=== PATIENT | female | born 1965 | race Caucasian/White ===

== ENCOUNTER → 2023-09-08 17:47 | Outpatient (REF) | payer BC, SELFPAY | LOC: WDC 17:47 | PROVIDERS: ATTENDING PHYSICIAN Obstetrics & Gynecology Gynecology; FAMILY PHYSICIAN Family Medicine | DX: Z12.31 Encounter for screening mammogram for malignant neoplasm of breast (principal); Z85.3 Personal history of malignant neoplasm of breast | CPT/HCPCS: 77063; 77067 ==

== ENCOUNTER → 2023-12-09 07:18 | Outpatient (REF) | payer BC, SELFPAY | LOC: RAD 07:18 | PROVIDERS: ATTENDING PHYSICIAN Family Medicine; FAMILY PHYSICIAN Family Medicine | DX: R10.11 Right upper quadrant pain (principal) | CPT/HCPCS: 76700 ==

== ENCOUNTER → 2024-01-19 09:26 | Outpatient (REF) | payer BC, SELFPAY | LOC: RAD 09:26 | PROVIDERS: ATTENDING PHYSICIAN Family Medicine | DX: R09.89 Other specified symptoms and signs involving the circulatory and respiratory systems (principal); R91.8 Other nonspecific abnormal finding of lung field | CPT/HCPCS: 71046 ==

== ENCOUNTER → 2024-01-23 10:28 | Outpatient (REF) | payer BC, SELFPAY | LOC: RAD 10:28 | PROVIDERS: ATTENDING PHYSICIAN Family Medicine; FAMILY PHYSICIAN Family Medicine | DX: R91.1 Solitary pulmonary nodule (principal) | CPT/HCPCS: 71250 ==

== ENCOUNTER 2024-01-24 14:37 | Inpatient (IN) | payer BC, SELFPAY ==
[2024-01-24 10:34] VITALS: BP 151/99
--- NOTE | 2024-01-24 11:56 | ED.GENMED ---
History of Present Illness
General
Chief Complaint: Breathing Problem
Source: patient
Exam Limitations: none
Time Seen by Provider: 01/24/24 11:37
Travel History
Have you had any contact with someone who has COVID-19?: No
Do you have any symptoms of coronavirus? Fever > 100 degrees, chills, cough, shortness of breath, sore throat, loss of taste or smell, muscle aches, or headache?: No
History of Present Illness
History of Present Illness:
58-year-old female presents with worsening cough shortness of breath work of breathing. She acutely got worse about 6 days ago. He was thought to have possible pneumonia and was prescribed Zithromax which she finished yesterday. Symptoms are
worsening. She was sick for a total of 2 weeks. She notes a productive cough occasionally small amount of blood. She also notes significant recent travel history between [facility] and [place]. She denies any leg swelling or calf pain. She
notes sweats and chills. She is fairly healthy otherwise. She is not a smoker.
Phy Exam
Physical Exam
Physical Exam:
General: Uncomfortable appearing female with increased work of breathing
HEENT: Normocephalic atraumatic neck is supple
Heart: Regular rate and rhythm no murmurs
Lungs: Crackles at the bases bilaterally
Extremities: No cyanosis or edema
Skin: Warm no rash
Scores
Heart Failure Risk
Heart Failure Risk Score: Not Applicable
Course
Orders/Labs/Results
Orders:
Orders
01/24/24 11:56
Comprehensive Metabolic Panel Urgent
D-Dimer Urgent
01/24/24 11:57
Complete Blood Count/With Diff Urgent
[facility] Progressive Urgent
NT-proBNP Urgent
01/24/24 13:21
0.9% Sodium Chloride 1000 ml [Nss] 1,000 ml IV BOLUS
Ipratropium/Albuterol Sulfate [Duoneb] 3 ml INH R NOW STA
Piperacillin/Tazo 3.375 Gram [Zosyn] 3.375 gram in 50 ml IV NOW
01/24/24 13:30
Blood Culture Q30M
FUAD Source: Blood/Venous
Specimen Description:
01/24/24 14:00
Blood Culture Q30M
FUAD Source: Blood/Venous
Specimen Description:
VANCOMYCIN Pharmacy to Dose [VANCOCIN Pharmacy to Dose] 1 each Pharmacy To Prepare [Call Pharmacy To Prepare] 0 ml IV PER PROTOCOL
Abnormal Lab Results
01/24/24 01/24/24
11:56 11:57
Hct 35.2 L %
(37.0-47.0)
MCV 80.5 L fL
(81.0-99.0)
Absolute Neuts (auto) 7.8 H 10^3/uL
(1.4-6.5)
Absolute Monos (auto) 0.7 H 10^3/uL
(0.1-0.6)
Lymphocytes % 18.6 L %
(20.5-51.1)
Carbon Dioxide 20 L mmol/L
(22-30)
Creatinine 0.5 L mg/dL
(0.6-1.0)
Glucose 101 H mg/dl
(70-99)
01/24/24 11:57
01/24/24 11:56
Vital Signs
Initial and Last Documented VS:
Initial Vital Signs
Temp Pulse Resp BP Pulse Ox
98.3 F 83 20 151/99 96
01/24/24 10:34 01/24/24 10:34 01/24/24 10:34 01/24/24 10:34 01/24/24 10:34
Last Documented Vital Signs
Temp Pulse Resp BP Pulse Ox
98.3 F 83 20 141/90 98
01/24/24 10:34 01/24/24 10:34 01/24/24 10:34 01/24/24 13:00 01/24/24 13:00
MDM/Problems Addressed
Differential Diagnosis Includes:
Persistent cough and shortness of breath despite recent treatment possible bronchitis with Zithromax and inhaler. She had outpatient chest x-ray about 5 days ago which was negative but there was a pulmonary nodule this was followed by CT scan which
was done as an outpatient yesterday. She has yet to hear the results of CT scan. This was done without contrast however. Recent extended travel. Consider potential for PE. Symptoms lasting over 2 weeks do not suspect flu. I have personally
visualized CT scan that was done as an outpatient yesterday which is pending official radiology report. Is possible pneumonia at the right base and small areas of infiltrate on the left side as well. D-dimer pending today. Will check labs.
*Critical Care Note
Total Time (30-74mins, 75-104mins- exclusive of procedures): Not Applicable
Update Note
Update Note:
Patient had 2 negative COVID test recently. I reviewed outpatient CT scan performed yesterday which demonstrates right and likely left basilar pneumonia. Patient now on 2 L of oxygen secondary to ongoing tachypnea. Will start vancomycin and
Zosyn. Fluids blood culture ordered. DuoNeb ordered admitted to hospitalist
ED Attending Note
-
Portions of this chart may have been created with voice recognition software.� Occasional wrong word or��sound alike� substitutions may have occurred due to the inherent limitations of voice recognition software.
Discharge Plan
Departure
Patient Disposition: Admit
Date of Disposition: 01/24/24
Time of Disposition: 13:27
Admit to: Telemetry
Presentation/result/management discussed w/ accepting MD/DO: Hospitalist
Discharge Problem:
Acute pneumonia
Prescriptions:
No Action
multivitamin 1 EACH tablet
1 ea PO DAILY
cyclosporine [Restasis] 10 DROPS dropperette
1 drp LEFT EYE BID
sumatriptan succinate [Imitrex] 100 MG tablet
100 mg PO PRN (Reason: headache)
ibuprofen 200 MG capsule
200 - 400 mg PO PRN (Reason: pain)
acetaminophen [Tylenol Extra Strength] 500 MG tablet
1 - 2 mg PO PRN PRN (Reason: pain)
Pataday
1 drp BOTH EYES PRN (Reason: dry eyes)
fluticasone propionate 1 SPRAY spray,suspension
1 spray intranasal PRN (Reason: congestion)
Referrals:
Naa Padilla MD [Family Provider] -
Interventions
Interventions:
ED- Cardiac Assessment Last Done: 01/24/24 12:05
ED- Pulmonary Assessment Last Done: 01/24/24 12:05
Discharge Date and Time
Print Language: CHINESE
[2024-01-24 11:58] VITALS: BP 143/83
[2024-01-24 12:12] LABS: % Basophils 0.3 % (0-2); % Eosinophils 1.4 % (0-6); % Immature Granulocytes 0.4 % (0-0.5); % Lymphocytes 18.6 % (20.5-51.1); % Monocytes 6.7 % (1.7-9.3); % Neutrophils 72.6 % (42.2-75.2); Absolute Eosinophils 0.2 10^3/uL (0-0.7); Absolute Monocytes 0.7 10^3/uL (0.1-0.6); Absolute Neutrophils 7.8 10^3/uL (1.4-6.5); Hematocrit 35.2 % (37.0-47.0); Hemoglobin 12.6 g/dL (12.0-16.0); Mean Corp Hgb Conc. 35.8 g/dL (33.0-37.0); Mean Corpuscular Hgb 28.8 pg (27.0-31.0); Mean Corpuscular Volume 80.5 fL (81.0-99.0); Mean Platelet Volume 10.4 fL (7.4-10.4); Nucleated Red Blood Cells % 0 %; Platelet Count 358 10^3/uL (130-400); Red Blood Cell Count 4.37 10^6/uL (4.20-5.40); Red Cell Dist. Width 11.9 % (11.5-14.5); White Blood Cell Count 10.7 10^3/uL (4.8-10.8)
[2024-01-24 12:24] LABS: D-Dimer 0.33 ug/mlFEU (0.00-0.50)
[2024-01-24 12:31] LABS: ALT (SGPT) 15 U/L (0-35); AST (SGOT) 21 U/L (14-36); Alkaline Phosphatase 83 U/L (38-126); Blood Urea Nitrogen 17 mg/dl (7-17); Calcium 9.9 mg/dl (8.4-10.2); Carbon Dioxide 20 mmol/L (22-30); Chloride 107 mmol/L (98-107); Glucose 101 mg/dl (70-99); Sodium 139 mmol/L (135-145); Total Bilirubin 0.7 mg/dl (0.2-1.3); Total Protein 6.6 g/dl (6.3-8.2); eGFR > 60.00
[2024-01-24 12:34] LABS: NT-proBNP 151 pg/ml
[2024-01-24 13:00] VITALS: BP 141/90
[2024-01-24 13:38] VITALS: BMI 25.6
[2024-01-24] MEDS: NSS 1000 IV ×2 (13:39→16:51)
[2024-01-24] MEDS: DUONEB 3 ML INH (13:39)
[2024-01-24] MEDS: ZOSYN 50 IV (13:40)
--- NOTE | 2024-01-24 13:51 | HPS.HSE ---
Family Physician
-
Family Physician: Naa Padilla
Chief Complaint
-
Pneumonia
History of Present Illness
58-year-old woman comes in with worsening cough, shortness of breath, increased work of breathing. She started to become symptomatic about 6 days ago. It was thought that she might have a possible pneumonia, and she was prescribed Zithromax, which
she finished yesterday. Her Symptoms today are worsening. She has been sick for a total of 2 weeks. She notes today a productive cough with occasionally small amounts of blood. She denies any leg swelling or calf pain but notes sweats and
chills. She is healthy otherwise. She is not a smoker. No regular home meds.
Medical History
Past Medical History
Past Medical History: Reports None
Past Surgical History: Reports None
Social History
Tobacco: Non-smoker
Alcohol: Occasional
Drug: None
Living: With Family
Employment: Employed
Family History
Family History: Not pertinent
Allergies / Home Medications
Allergies reflects when Allergies were last updated in [facility].
Home Medications with original date entered in [facility]
Allergy/Medication List:
Allergies
Allergy/AdvReac Type Severity Reaction Status Date / Time
No Known Drug Allergies Allergy None Verified 01/24/24 10:37
environmental Allergy itchy, Uncoded 01/24/24 10:37
watery
eyes,
nasal
congestion
Home Medications
albuterol sulfate 90 mcg/actuation aerosol inhaler 1 puff inhalation R Q4HPRN PRN sob 01/24/24
cyanocobalamin (vitamin B-12) 2,500 mcg sublingual tablet 2,500 mcg sublingual DAILY 01/24/24
ibuprofen 200 mg tablet 200 mg PO Q6HPRN PRN mild pain 01/24/24
sadbzvyweqryu-WI-lasyovqxevkjv-guaif 5 mg-10 mg-325 mg-200mg/15 mL liq (Tylenol Cold and Flu Severe) 30 ml PO HSPRN PRN cold symptoms 01/24/24
therapeutic multivitamin 1 tab PO DAILY 01/24/24
Review of Systems
-
History Source: Patient
A 12 point ROS was completed and negative except as noted: Yes
Physical Exam
Vital Signs
Vital Signs
Temp Pulse Resp BP Pulse Ox
98.3 F 83 20 141/90 98
01/24/24 10:34 01/24/24 10:34 01/24/24 10:34 01/24/24 13:00 01/24/24 13:00
Physical Exam
General: Well Developed, Well Nourished, Respiratory Distress, Chills and Sweats
HEENT: No Ptosis, Nose Appears Normal and Ears Appear Normal
Respiratory: Crackles and Decreased Breath Sounds
Cardiac: S1/S2 and Regular Rhythm
GI: Soft, Non Tender and Non Distended
Musculoskeletal: No Clubbing, No Cyanosis and No Edema
Skin: Warm and Dry; No Rash or Jaundice
Neuro: Awake, Alert, Oriented and AO x 3
Psych: Calm
Laboratory Results
-
01/24/24 11:57
01/24/24 11:56
Laboratory Results
Total Bilirubin 0.7 mg/dl (0.2-1.3) 01/24/24 11:56
AST 21 U/L (14-36) 01/24/24 11:56
ALT 15 U/L (0-35) 01/24/24 11:56
Alkaline Phosphatase 83 U/L (38-126) 01/24/24 11:56
Data Reviewed
-
Lab Data: Labs Reviewed by me
Impression/Plan
-
IMPRESSION:
58 woman with PNA. Failed outpatient therapy.
ER visualized CT scan that was done as an outpatient yesterday. Per ER report, It shows 'possible pneumonia at the right base and small areas of infiltrate on the left side as well.'
PLAN:
1. Pneumonia
IV abx
Sputum culture
Nebs/cough syrup as needed
Full code
VCD for DVTp
[2024-01-24 14:00] VITALS: BP 137/81
[2024-01-24] MEDS: VANCOCIN 300 MG IV (14:34)
[2024-01-24] MEDS: VANCOCIN 300 ML IV (14:34)
[2024-01-24 16:00] VITALS: BP 142/85; BMI 24.5
[2024-01-24] MEDS: MOTRIN 200 MG PO (16:52)
[2024-01-24] MEDS: ZITHROMAX INFUSION 250 IV (16:53)
[2024-01-24] MEDS: ROCEPHIN 1000 MG IV (16:53)
[2024-01-24 23:24] VITALS: BP 132/85
[2024-01-25] MEDS: MOTRIN 200 MG PO (03:12)
[2024-01-25 04:37] VITALS: BMI 24.4
[2024-01-25] MEDS: NSS 1000 IV ×2 (05:49→18:09)
[2024-01-25] MEDS: ProAIR HFA INHALER 1 PUFF INH (06:22)
[2024-01-25 07:55] VITALS: BP 133/89
[2024-01-25 08:14] LABS: Hemoglobin 11.8 g/dL (12.0-16.0); Mean Corp Hgb Conc. 34.7 g/dL (33.0-37.0); Mean Corpuscular Hgb 28.6 pg (27.0-31.0); Mean Corpuscular Volume 82.3 fL (81.0-99.0); Mean Platelet Volume 11.2 fL (7.4-10.4); Platelet Count 361 10^3/uL (130-400); Red Blood Cell Count 4.13 10^6/uL (4.20-5.40); Red Cell Dist. Width 11.9 % (11.5-14.5); White Blood Cell Count 10.2 10^3/uL (4.8-10.8)
[2024-01-25 08:59] LABS: Blood Urea Nitrogen 11 mg/dl (7-17); Calcium 8.8 mg/dl (8.4-10.2); Carbon Dioxide 16 mmol/L (22-30); Chloride 110 mmol/L (98-107); Estimated Creatinine Clearance 85 ml/min; Glucose 89 mg/dl (70-99); Potassium 3.8 mmol/L (3.5-5.1); Sodium 137 mmol/L (135-145); eGFR > 60.00
[2024-01-25] MEDS: VITAMIN B-12 2500 MCG PO (09:28)
[2024-01-25] MEDS: THERAGRAN 1 TABLET PO (09:29)
[2024-01-25 10:52] VITALS: BP 143/93; PULSE 63; O2SAT 98
--- NOTE | 2024-01-25 11:46 | CM ---
Patient seen at bedside. Patient states that she lives with her in a 2 story home. Patient stated that she has no DME and that she is working and driving. Patient Dr. Gonzales PCP and patient uses the pharmacy in [facility].
Patient stated that she does not anticipate any discharge needs at this time. CM will continue to follow for discharge planning needs.
Plan; home with family; watch for any VN needs.
--- NOTE | 2024-01-25 12:13 | W.PN.HOSP.TC ---
Addendum entered and electronically signed by Brenda Pena MD 01/25/24 19:43:
Patient seen and examined independently--agree with plan set forth by Dr. Simmons
GENERAL: well developed, well nourished, female in no apparent distress
HEENT: NC/AT--no O2 requirements
HEART: regular rate and rhythm, +S1, +S2
LUNGS : coarse breath sounds bilaterally
ABDOM: soft, nontender, nondistended, + bowel sounds
EXT: no cyanosis, clubbing, or edema
NEUROLOGIC: grossly intact
SKIN: small maculopapular rash on back--less on trunk--none on arms/legs
Pneumonia--likely community acquired--Failed outpatient antibiotic therapy with azithromycin--CT showed evidence of pneumonia--blood cultures neg--WBC WNL--sputum culture pending--Legionella urine antigen negative--IV azithromycin
discontinued--Continue ceftriaxone--Start doxycycline 100 mg, per oral, twice daily--Albuterol as needed
New onset abdominal/back rash--could be heat rash--pt says started before admission on zithromax--possibly due to that--Azithromycin discontinued--Start Benadryl
code status -- FULL CODE
anticipate d/c tomorrow?
Original Note:
Today's Communication/Plan
-
DC'd azithromycin
Started on doxycycline
Start Benadryl
Assessment / Plan
Assessment / Plan
Assessment
58-year-old female, admitted for worsening cough, shortness of breath, hemoptysis. She was prescribed Zithromax as outpatient due to possibility of pneumonia. She had a recent travel history between [facility] and [place]. CT chest in ER
showed consolidation in posterior medial right lung base�evidence of pneumonia, bilateral basilar opacities, trace bilateral pleural effusions. She was started on ceftriaxone IV and azithromycin IV. D-dimer�0.33
Impression:
Pneumonia
New onset rash
Plan:
# Pneumonia
Failed outpatient antibiotic therapy with azithromycin
CT showed evidence of pneumonia
Blood culture pending
Sputum culture pending
Lines pending
Legionella urine antigen negative
WBC 10.2 today
Trend CBC
Patient is afebrile
Monitor fever curve
IV azithromycin discontinued
Continue ceftriaxone
Start doxycycline 100 mg, per oral, twice daily
Albuterol as needed
# New onset abdominal/back rash
Erythematous maculopapular itchy
Possibly due to azithromycin
Azithromycin discontinued
Start Benadryl
Anticipated Discharge: 24 - 48 hours
Subjective/Interval History
-
Date of Service: January 25, 2024
Patient reports having itchy rash on the abdomen and back.
Patient has headaches in the morning.
She is still producing green sputum on coughing, no worsening of shortness of breath.
Objective Data
-
Labs:
Laboratory Results
01/25/24
06:42
WBC 10.2
Hgb 11.8 L
Hct 34.0 L
Plt Count 361
Sodium 137
Potassium 3.8
Chloride 110 H
Carbon Dioxide 16 L
BUN 11
Creatinine 0.5 L
Glucose 89
Calcium 8.8
Vital Signs:
Vital Signs
Temp Pulse Resp BP Pulse Ox
97.6 F 68 16 133/89 98
01/25/24 07:55 01/25/24 07:55 01/25/24 07:55 01/25/24 07:55 01/25/24 07:55
I&O
01/24/24 01/25/24 01/26/24
06:59 06:59 06:59
Intake Total 1380 / 1380
Balance 1380 / 1380
Review of Systems
-
All other systems: Reviewed and negative (As per HPI)
Physical Exam
-
General: Well Developed and Well Nourished
HEENT: Normocephalic and Atraumatic
Respiratory: Crackles (Bilateral basal crackles)
Cardiac: S1/S2
GI: Soft, Nontender and Nondistended
Skin: Rash (Erythematous macular rash on the abdomen and back)
Neuro: Awake, Alert, Oriented and AO x 3
[2024-01-25 14:39] LABS: Lyme Antibody Screen, EIA Negative (Negative)
[2024-01-25 15:55] VITALS: BP 131/79
[2024-01-25] MEDS: STERILE WATER FOR INJECTION 10 ML IV (16:45)
[2024-01-25] MEDS: ROCEPHIN 1000 MG IV (16:45)
[2024-01-25] MEDS: BENADRYL 25 MG PO (17:19)
[2024-01-25] MEDS: VIBRAMYCIN 100 MG PO (19:56)
[2024-01-25 23:10] VITALS: BP 146/87
[2024-01-26 06:00] VITALS: BMI 24.1
[2024-01-26 06:33] LABS: % Basophils 0.5 % (0-2); % Eosinophils 3.2 % (0-6); % Immature Granulocytes 0.6 % (0-0.5); % Lymphocytes 22.9 % (20.5-51.1); % Monocytes 8.2 % (1.7-9.3); % Neutrophils 64.6 % (42.2-75.2); Absolute Eosinophils 0.3 10^3/uL (0-0.7); Absolute Immature Granulocytes 0.1 10^3/uL (0-0.05); Absolute Lymphocytes 1.9 10^3/uL (1.2-3.4); Absolute Monocytes 0.7 10^3/uL (0.1-0.6); Absolute Neutrophils 5.5 10^3/uL (1.4-6.5); Hematocrit 32.5 % (37.0-47.0); Hemoglobin 11.7 g/dL (12.0-16.0); Mean Corpuscular Hgb 28.8 pg (27.0-31.0); Mean Platelet Volume 10.7 fL (7.4-10.4); Nucleated Red Blood Cells % 0 %; Platelet Count 373 10^3/uL (130-400); Red Blood Cell Count 4.06 10^6/uL (4.20-5.40); Red Cell Dist. Width 12.2 % (11.5-14.5); White Blood Cell Count 8.4 10^3/uL (4.8-10.8)
[2024-01-26 07:02] LABS: ALT (SGPT) 13 U/L (0-35); AST (SGOT) 20 U/L (14-36); Albumin 3.4 g/dl (3.5-5.0); Alkaline Phosphatase 73 U/L (38-126); Blood Urea Nitrogen 13 mg/dl (7-17); Carbon Dioxide 22 mmol/L (22-30); Chloride 109 mmol/L (98-107); Estimated Creatinine Clearance 85 ml/min; Glucose 100 mg/dl (70-99); Potassium 4.2 mmol/L (3.5-5.1); Sodium 140 mmol/L (135-145); Total Bilirubin 0.4 mg/dl (0.2-1.3); eGFR > 60.00
[2024-01-26 07:51] VITALS: BP 146/89
[2024-01-26] MEDS: VITAMIN B-12 2500 MCG PO (08:40)
[2024-01-26] MEDS: VIBRAMYCIN 100 MG PO (08:40)
[2024-01-26] MEDS: THERAGRAN 1 TABLET PO (08:41)
--- NOTE | 2024-01-26 08:59 | W.PN.HOSP.TC ---
Addendum entered and electronically signed by Brenda Pena MD 01/26/24 17:02:
Patient seen and examined independently--agree with plan set forth by Dr. Simmons
GENERAL: well developed, well nourished, female in no apparent distress
HEENT: NC/AT--no O2 requirements
HEART: regular rate and rhythm, +S1, +S2
LUNGS : coarse breath sounds bilaterally
ABDOM: soft, nontender, nondistended, + bowel sounds
EXT: no cyanosis, clubbing, or edema
NEUROLOGIC: grossly intact
SKIN: small maculopapular rash on back--less on trunk--none on arms/legs
Pneumonia--likely community acquired--Failed outpatient antibiotic therapy with azithromycin--CT showed evidence of pneumonia--blood cultures neg--WBC WNL--sputum culture with usual resp jose--Legionella urine antigen negative--IV azithromycin
discontinued--Continue ceftriaxone--Staredt doxycycline 100 mg, per oral, twice daily--Albuterol as needed--change to Augmentin at d/c
New onset abdominal/back rash--could be heat rash--pt says started before admission on zithromax--possibly due to that--Azithromycin discontinued-- Benadryl helped
code status -- FULL CODE
Original Note:
Today's Communication/Plan
-
Discharge
Assessment / Plan
Assessment / Plan
Assessment
58-year-old female, admitted for worsening cough, shortness of breath, hemoptysis. She was prescribed Zithromax as outpatient due to possibility of pneumonia. She had a recent travel history between [facility] and [place]. CT chest in ER
showed consolidation in posterior medial right lung base�evidence of pneumonia, bilateral basilar opacities, trace bilateral pleural effusions. She was started on ceftriaxone IV and azithromycin IV. D-dimer�0.33
Impression:
Pneumonia
New onset rash
Plan:
# Pneumonia
Failed outpatient antibiotic therapy with azithromycin
CT showed evidence of pneumonia
Blood culture - no growth in 48 hours
Sputum culture -preliminary, rare gram-positive cocci, rare gram-negative rods
Legionella urine antigen negative
WBC 8.4 today
Trend CBC
Patient is afebrile
Monitor fever curve
IV azithromycin discontinued
Continue ceftriaxone
Started doxycycline 100 mg, per oral, twice daily
Albuterol as needed
# New onset abdominal/back rash
Erythematous maculopapular itchy
Possibly due to azithromycin
Azithromycin discontinued
Benadryl helped with the rash.
Anticipated Discharge: Today
Subjective/Interval History
-
Date of Service: January 26, 2024
Patient reports rash has improved after taking Benadryl yesterday. She did not have the need to use albuterol, no shortness of breath, had some chills at night but no fever.
Had 2 episodes of diarrhea in the morning today, no blood in the stools.
Objective Data
-
Labs:
Laboratory Results
01/26/24
05:58
WBC 8.4
Hgb 11.7 L
Hct 32.5 L
Plt Count 373
Sodium 140
Potassium 4.2
Chloride 109 H
Carbon Dioxide 22
BUN 13
Creatinine 0.6
Glucose 100 H
Calcium 9.0
Total Bilirubin 0.4
AST 20
ALT 13
Alkaline Phosphatase 73
Vital Signs:
Vital Signs
Temp Pulse Resp BP Pulse Ox
98.4 F 69 18 146/89 96
01/26/24 07:51 01/26/24 07:51 01/26/24 07:51 01/26/24 07:51 01/26/24 07:51
I&O
01/25/24 01/26/24 01/27/24
06:59 06:59 06:59
Intake Total 1380 / 1380 3060 / 3060
Balance 1380 / 1380 3060 / 3060
Review of Systems
-
All other systems: Reviewed and negative (As per HPI)
Physical Exam
-
General: Well Developed and Well Nourished
HEENT: Normocephalic and Atraumatic
Respiratory: Other (breath sounds coarse)
Cardiac: S1/S2
GI: Soft, Nontender, Nondistended and Normal Bowel Sounds
Skin: Warm and Dry
Neuro: Awake, Alert, Oriented and AO x 3
--- NOTE | 2024-01-26 09:33 | CM ---
Patient seen at bedside with also present. Patient stated that she was feeling better and thought she would be able to go home. Patient to provide transportation home. Patient stated that she thought she could take care of herself at
home. CM will continue to follow for discharge planning needs.
Plan; home with no needs.
[2024-01-26 15:15] VITALS: BP 130/80
--- NOTE | 2024-01-26 16:39 | W.DCSUMMARY ---
Addendum entered and electronically signed by Brenda Pena MD 01/26/24 19:56:
Read fully and agree with discharge plan as set forth by Dr. Simmons.
No additions needed.
Original Note:
Discharge Summary
Discharge Data
Date of Admission: 01/24/24
Date of Discharge: 01/26/24
-
Pending Results: No
Hospital Course
Primary care physician : Naa Padilla
Principal Discharge diagnosis : Pneumonia
Chronic Discharge diagnosis : No significant past medical history
Hospital Course : 58-year-old female, admitted for worsening cough, shortness of breath, hemoptysis since 2 weeks. She denies any leg swelling or calf pain. She was prescribed Zithromax as outpatient due to possibility of pneumonia. She had a
recent travel history between [facility] and [place]. CT chest in ER showed consolidation in posterior medial right lung base�evidence of pneumonia, bilateral basilar opacities, trace bilateral pleural effusions. She was started on ceftriaxone
IV and azithromycin IV. D-dimer�0.33. Patient reports developing erythematous itchy maculopapular rash on the back. Azithromycin was discontinued, started on doxycycline 100 mg, per oral twice daily, Benadryl helped with the rash. Patient has
clinically improved. She is discharged on cephalexin, 500 mg thrice daily, PO for 5 more days, doxycycline 100 mg, PO twice daily for 6 more days, albuterol inhaler as needed. Given precautionary measures to use sunscreen lotion while on
doxycycline as it may cause sunburn. Patient's condition is stable at discharge. Advised to follow-up with her primary in a week.
Discharge Plan
-
Patient Disposition: Home (Routine Discharge)
Discharge Diagnosis/Procedures: Pneumonia
Condition: Good
Diet: No restrictions
Activity: No restrictions
Driving Restrictions: As prior to admission
Bathing Restrictions: None
Referrals:
Naa Padilla MD [Family Provider] - in less than 1 week
Additional Discharge Medication Instructions: Doxycycline may cause sunburn if exposed to sunlight for the duration of use. Please apply sunscreen lotion, widebrimmed hat as a precautionary measure.
Prescriptions:
New
diphenhydramine HCl 25 mg Capsule
25 mg PO Q4HPRN PRN (Reason: rash) Qty: 20 0RF
cephalexin 500 mg capsule
500 mg PO TID Qty: 15 0RF
doxycycline monohydrate 100 mg capsule
100 mg PO BID Qty: 12 0RF
Continued
cyanocobalamin (vitamin B-12) 2,500 mcg Tablet, Sublingual
2,500 mcg SUBLINGUAL DAILY
therapeutic multivitamin Tablet
1 tab PO DAILY
ibuprofen 200 mg Tablet
200 mg PO Q6HPRN PRN (Reason: mild pain)
albuterol sulfate 90 mcg/actuation Hfa Aerosol Inhaler
1 puff INHALATION R Q4HPRN PRN (Reason: sob)
Discontinued
Tylenol Cold and Flu Severe 9-48-921-200 mg/15 mL Liquid
30 ml PO HSPRN PRN (Reason: cold symptoms)
Discharge Orders:
Discharge Patient (As Directed); Ordered 01/26/24
Ordered By: Sumaya Simmons
Discharge Date and Time
Discharge Date/Time: 01/26/24 15:52
Print Language: INDONESIAN
== END 2024-01-26 15:52 | disposition home or self-care (01) | DRG 194 ==
LOC: 4 EAST ACU 14:37
PROVIDERS: Physician Assistant; Student in an Organized Health Care Education/Training Program; ADMITTING PHYSICIAN Internal Medicine; ATTENDING PHYSICIAN Internal Medicine; EMERGENCY PHYSICIAN Emergency Medicine; FAMILY PHYSICIAN Family Medicine
DX: J18.9 Pneumonia, unspecified organism (principal); R04.2 Hemoptysis
CPT/HCPCS: 80048; 80053; 83880; 85025; 85027; 85379; 86618; 87040; 87070; 87205; 87449; 94640; 96361; 96365; 97161; 99285

== ENCOUNTER → 2024-10-10 11:54 | Outpatient (REF) | payer BC, SELFPAY | LOC: WDC 11:54 | PROVIDERS: ATTENDING PHYSICIAN Obstetrics & Gynecology Gynecology; FAMILY PHYSICIAN Family Medicine | DX: Z12.31 Encounter for screening mammogram for malignant neoplasm of breast (principal) | CPT/HCPCS: 77063; 77067 ==

== ENCOUNTER → 2025-02-06 10:43 | Outpatient (REF) | payer BC, SELFPAY | LOC: HWRAD 10:43 | PROVIDERS: ATTENDING PHYSICIAN Family Medicine | DX: R91.1 Solitary pulmonary nodule (principal) | CPT/HCPCS: 71250 ==